=== PATIENT | male | born 1950 | race Caucasian/White ===

== ENCOUNTER → 2019-07-21 09:22 | Outpatient (CLI) | payer MEDICARE, OTHER, SELFPAY ==
--- NOTE | 2019-07-21 | DI.MRI.S_ITS ---
PROCEDURE: MR LUMBAR SPINE WO/W CON INDICATIONS: Radiculopathy, lumbosacral region TECHNIQUE: Noncontrast sagittal T1 spin echo and T2 fast spin echo, sagittal STIR, axial T1 and T2 fast spin echo through the lumbar spine. In cases with scoliosis, additional coronal T2 fast spin echo may be performed. After the administration of contrast, sagittal and axial T1 spin echo with fat saturation through the lumbar spine. COMPARISON: None. FINDINGS: Image quality: Excellent. Alignment and curvature: No plain films are available for comparison, for numbering purposes. Thus, for the purposes of this examination, 5 lumbar type vertebral bodies will be presumed, as denoted on the montage panel. This should be confirmed and correlated with plain films, prior to any lumbar spinal intervention. There is loss of normal lumbar lordosis. There is mild, grade 1 retrolisthesis of L2 on L3, L3 on L4, and L4 on L5. Marrow: Marrow is of normal overall signal. No acute vertebral body compression fractures. No suspicious marrow enhancement. Mild reactive signal within the endplates adjacent to the T11-T12, T12-L1, L1-L2, L2-L3, L3-L4, L4-L5, and L5-S1 intervertebral discs. Spinal cord: Conus medullaris terminates at the L1-L2 disc space level. Visualized spinal cord demonstrates normal signal, without suspicious enhancement. Paraspinous soft tissues: There is a 30 mm diameter infrarenal abdominal aortic aneurysm. L1-L2: Moderate disc desiccation. Mild diffuse disc bulge. Mild facet and ligamentum flavum hypertrophy. Mild epidural lipomatosis. Mild canal stenosis. Mild bilateral foraminal stenosis. L2-L3: Moderate disc height loss and desiccation. Moderate diffuse disc bulge with superimposed left paracentral disc extrusion. Mild facet and ligament flavum hypertrophy. Mild epidural lipomatosis. Severe canal stenosis. Mild right and moderate left foraminal stenosis. Compression of the left L3 nerve root within the lateral recess. L3-L4: Moderate disc desiccation and moderate diffuse disc bulge with superimposed broad-based left far lateral protrusion. Mild facet and ligamentum flavum hypertrophy. Mild epidural lipomatosis. Moderate canal stenosis. Moderate left and mild right foraminal stenosis. L4-L5: Moderate disc height loss and desiccation. Moderate diffuse disc bulge with superimposed small central protrusion. Moderate facet and ligamentum flavum hypertrophy. Mild epidural lipomatosis. Severe canal stenosis. Severe right and moderate left subarticular foraminal stenosis. Right L4 nerve root compression. L5-S1: Severe disc height loss and desiccation. Moderate diffuse disc bulge. Moderate bilateral facet hypertrophy. Mild canal stenosis. Severe bilateral foraminal stenosis with bilateral L5 nerve root compression. Mild posterior deviation of the right S1 nerve root within the lateral recess. IMPRESSION: 1. Multilevel degenerative disc and facet disease, as well as ligamentum flavum hypertrophy and epidural lipomatosis. 2. Multilevel canal stenoses, worst at L2-L3 and L4-L5, where there are severe canal stenoses present. 3. Multilevel foraminal stenoses, worst at L2-L3, L4-L5, and L5-S1 where there is associated intraforaminal nerve root compression. 4. Mild posterior deviation of the right S1 nerve root within the lateral recess at L5-S1. 5. Recommend correlation with clinical symptoms to ascertain relevance of this finding. 6. 30 mm diameter infrarenal abdominal aortic aneurysm. Dictated by: Elvis Gonzalez M.D. on 07/21/2019 at 10:48 Approved by: Elvis Gonzalez M.D. on 07/21/2019 at 10:54
== END ==
PROVIDERS: Referring Provider Family Medicine; Visit Provider Family Medicine
DX: M51.16 Intervertebral disc disorders with radiculopathy, lumbar region (principal); M51.17 Intervertebral disc disorders with radiculopathy, lumbosacral region; M47.26 Other spondylosis with radiculopathy, lumbar region; M47.27 Other spondylosis with radiculopathy, lumbosacral region; M48.061 Spinal stenosis, lumbar region without neurogenic claudication; M48.07 Spinal stenosis, lumbosacral region
CPT/HCPCS: 72158